=== PATIENT | male | born 1930 | race Caucasian/White ===

== ENCOUNTER → 2016-03-31 | Outpatient (CLI) | payer OTHER ==
[~2016-03-31] MED LIST: ALBUAER19 INH; ANDROGEL TD; ASPEC81 PO; ATOR-24 PO; CYAN500T13 PO; DILT120C PO; FINA5TAB PO; GLUCOSAMINE CHOND PO; LISI-725 PO; LORA5TAB21 PO; MULT-506 PO; OMEG10007 PO
[2016-03-31 13:45] LABS: BASO % 0.2 %; BASO ABS # 0.01 K/uL (0-0.2); COMPLETE YES; EOS % 1.1 %; HEMATOCRIT 43.2 % (42-52); IG% 0.2 %; LYMPH % 26.9 %; LYMPH ABS # 1.24 K/uL (1.2-3.4); MEAN CELL VOLUME 90.6 fL (80-100); MEAN CORPUSCULAR HGB CONC 34.3 g/dl (32-36); MEAN PLATELET VOLUME 9.7 fL (7.4-10.4); MONO % 11.5 %; NEUT % 60.1 %; PLATELET COUNT 249 K/uL (130-400); RED BLOOD COUNT 4.77 M/uL (4.7-6.1); WHITE BLOOD COUNT 4.61 K/uL (4.8-10.8)
[2016-03-31 14:03] LABS: ALT/SGPT 36 U/L (12-78); BLOOD UREA NITROGEN 13 mg/dl (7-18); BUN/CREATININE RATIO 14.8 (10-20); CALCIUM 8.7 mg/dl (8.5-10.1); CARBON DIOXIDE 28 mmol/L (21-32); CHLORIDE 103 mmol/L (98-107); CHOLESTEROL 187 mg/dl (0-200); GLUCOSE 88 mg/dl (70-99); POTASSIUM 4.2 mmol/L (3.5-5.1); SODIUM 140 mmol/L (136-145)
[2016-03-31 14:06] LABS: ALB/GLOB RATIO 1.2 (0.9-2); ALKALINE PHOSPHATASE 72 U/L (45-117); AST/SGOT 23 U/L (15-37); CHOLESTEROL/HDL RATIO 2.6; HDL CHOLESTEROL 72 mg/dl; LDL CHOLESTEROL CALCULATED 101 mg/dl; TRIGLYCERIDES 72 mg/dl (0-150); VERY LOW DENSITY LIPOPROT CALC 14 mg/dl
== END | disposition home or self-care (01) ==
LOC: C.LABBC 09:32
PROVIDERS: ATTEND Family Medicine
DX: E29.1 Testicular hypofunction (principal); E78.00 Pure hypercholesterolemia, unspecified; R73.9 Hyperglycemia, unspecified; I10 Essential (primary) hypertension; N40.0 Benign prostatic hyperplasia without lower urinary tract symptoms

== ENCOUNTER → 2016-10-29 | Outpatient (CLI) | payer OTHER ==
[2016-10-29 14:21] LABS: ALT/SGPT 32 U/L (12-78); AST/SGOT 19 U/L (15-37); BLOOD UREA NITROGEN 10 mg/dl (7-18); BUN/CREATININE RATIO 9.2 (10-20); CALCIUM 8.9 mg/dl (8.5-10.1); CARBON DIOXIDE 28 mmol/L (21-32); CHLORIDE 104 mmol/L (98-107); GLUCOSE 96 mg/dl (70-99); POTASSIUM 4.6 mmol/L (3.5-5.1); SODIUM 136 mmol/L (136-145)
[2016-10-29 14:27] LABS: ALKALINE PHOSPHATASE 68 U/L (45-117); CHOLESTEROL 154 mg/dl (0-200); CHOLESTEROL/HDL RATIO 2.3; HDL CHOLESTEROL 67 mg/dl; LDL CHOLESTEROL CALCULATED 77 mg/dl; PROSTATE SPECIFIC ANTIGEN 0.992 ng/ml (0.000-4.000); TRIGLYCERIDES 51 mg/dl (0-150); VERY LOW DENSITY LIPOPROT CALC 10 mg/dl
[2016-10-29 14:55] LABS: BASO % 0.2 %; BASO ABS # 0.01 K/uL (0-0.2); COMPLETE YES; EOS % 1.2 %; HEMATOCRIT 45.1 % (42-52); IG% 0.2 %; LYMPH % 28.3 %; LYMPH ABS # 1.39 K/uL (1.2-3.4); MEAN CELL VOLUME 91.9 fL (80-100); MEAN CORPUSCULAR HEMOGLOBIN 30.1 pg (25-34); MEAN CORPUSCULAR HGB CONC 32.8 g/dl (32-36); MEAN PLATELET VOLUME 9.7 fL (7.4-10.4); MONO % 9.6 %; NEUT % 60.5 %; PLATELET COUNT 249 K/uL (130-400); RED BLOOD COUNT 4.91 M/uL (4.7-6.1); WHITE BLOOD COUNT 4.92 K/uL (4.8-10.8)
== END | disposition home or self-care (01) ==
LOC: C.LABBC 09:55
PROVIDERS: ATTEND Family Medicine
DX: E29.1 Testicular hypofunction (principal); E78.00 Pure hypercholesterolemia, unspecified; I10 Essential (primary) hypertension; I44.1 Atrioventricular block, second degree; N40.1 Benign prostatic hyperplasia with lower urinary tract symptoms; Z95.0 Presence of cardiac pacemaker

== ENCOUNTER → 2017-04-29 | Outpatient (CLI) | payer OTHER ==
[2017-04-29 13:34] LABS: BASO % 0.2 %; BASO ABS # 0.01 K/uL (0-0.2); EOS % 1.2 %; EOS ABS # 0.07 K/uL (0-0.5); HEMATOCRIT 44.6 % (42-52); HEMOGLOBIN 15.2 g/dL (14.0-18.0); LYMPH % 25.7 %; MEAN CELL VOLUME 91.6 fL (80-100); MEAN CORPUSCULAR HEMOGLOBIN 31.2 pg (25-34); MEAN CORPUSCULAR HGB CONC 34.1 g/dl (32-36); MEAN PLATELET VOLUME 9.7 fL (7.4-10.4); MONO % 9.4 %; MONO ABS # 0.55 K/uL (0.11-0.59); NEUT % 63.5 %; NEUT ABS # 3.71 K/uL (1.4-6.5); PLATELET COUNT 242 K/uL (130-400); RED CELL DISTRIBUTION WIDTH CV 14.4 % (11.5-14.5); RED CELL DISTRIBUTION WIDTH SD 48.5 fL (36.4-46.3); WHITE BLOOD COUNT 5.84 K/uL (4.8-10.8)
[2017-04-29 14:29] LABS: ALBUMIN 3.7 gm/dl (3.4-5.0); ALT/SGPT 29 U/L (12-78); AST/SGOT 18 U/L (15-37); BLOOD UREA NITROGEN 11 mg/dl (7-18); CALCIUM 8.7 mg/dl (8.5-10.1); CARBON DIOXIDE 30 mmol/L (21-32); GLUCOSE 92 mg/dl (70-99); POTASSIUM 4.1 mmol/L (3.5-5.1); SODIUM 135 mmol/L (136-145)
[2017-04-29 14:37] LABS: ALKALINE PHOSPHATASE 74 U/L (45-117); TOTAL PROTEIN 7.6 gm/dl (6.4-8.2)
== END | disposition home or self-care (01) ==
LOC: C.LABBC 09:48
PROVIDERS: ATTEND Nurse Practitioner Adult Health
DX: Z00.00 Encounter for general adult medical examination without abnormal findings (principal); E29.1 Testicular hypofunction; I10 Essential (primary) hypertension; E53.8 Deficiency of other specified B group vitamins

== ENCOUNTER → 2017-10-27 | Outpatient (CLI) | payer OTHER ==
[~2017-10-27] MED LIST changes: +DILT-213 PO; -DILT120C PO
[2017-10-27 10:36] LABS: BASO % 0.4 %; BASO ABS # 0.02 K/uL (0-0.2); EOS % 2.5 %; EOS ABS # 0.13 K/uL (0-0.5); HEMATOCRIT 41.6 % (42-52); HEMOGLOBIN 14.1 g/dL (14.0-18.0); IG# 0.01 K/uL (0.00-0.02); LYMPH % 36.5 %; MEAN CELL VOLUME 89.3 fL (80-100); MEAN CORPUSCULAR HEMOGLOBIN 30.3 pg (25-34); MEAN CORPUSCULAR HGB CONC 33.9 g/dl (32-36); MEAN PLATELET VOLUME 9.4 fL (7.4-10.4); MONO % 7.5 %; MONO ABS # 0.39 K/uL (0.11-0.59); NEUT % 52.9 %; NEUT ABS # 2.75 K/uL (1.4-6.5); PLATELET COUNT 234 K/uL (130-400); RED CELL DISTRIBUTION WIDTH CV 14.2 % (11.5-14.5); RED CELL DISTRIBUTION WIDTH SD 46.4 fL (36.4-46.3)
[2017-10-27 10:51] LABS: ALBUMIN 3.6 gm/dl (3.4-5.0); ALKALINE PHOSPHATASE 67 U/L (45-117); ALT/SGPT 38 U/L (12-78); AST/SGOT 23 U/L (15-37); BLOOD UREA NITROGEN 15 mg/dl (7-18); CALCIUM 8.7 mg/dl (8.5-10.1); CARBON DIOXIDE 27 mmol/L (21-32); CHOLESTEROL 183 mg/dl (0-200); CREATININE 0.93 mg/dl (0.60-1.40); GLUCOSE 98 mg/dl (70-99); LDL CHOLESTEROL CALCULATED 103 mg/dl; POTASSIUM 4.3 mmol/L (3.5-5.1); SODIUM 137 mmol/L (136-145)
== END | disposition home or self-care (01) ==
LOC: C.LABBC 09:06
PROVIDERS: ATTEND Nurse Practitioner Family
DX: E78.00 Pure hypercholesterolemia, unspecified (principal); R73.9 Hyperglycemia, unspecified; I10 Essential (primary) hypertension; I51.9 Heart disease, unspecified; E53.8 Deficiency of other specified B group vitamins

== ENCOUNTER 2018-04-12 05:20 | Observation (INO) ==
--- NOTE | 2018-03-23 08:34 | PAT Medication Instructions ---
Medication Instructions Date of Service March 23, 2018 Home Medications aspirin [Aspirin Low Dose] 81 mg PO HS atorvastatin 40 mg PO HS cyanocobalamin (vitamin B-12) 1,000 mcg PO QAM diltiazem HCl 120 mg PO QAM finasteride 5 mg PO QPM lisinopril 10 mg PO QAM multivitamin 1 tab PO DAILY tamsulosin 0.4 mg PO HS ASK your prescriber and surgeon aspirin [Aspirin Low Dose] 81 mg PO HS DO NOT take the morning of surgery cyanocobalamin (vitamin B-12) 1,000 mcg PO QAM lisinopril 10 mg PO QAM multivitamin 1 tab PO DAILY Take morning of surgery With a small sip of water, OTHERWISE NOTHING TO EAT OR DRINK AFTER MIDNIGHT: diltiazem HCl 120 mg PO QAM Take evening before surgery atorvastatin 40 mg PO HS finasteride 5 mg PO QPM tamsulosin 0.4 mg PO HS Other Notes If you have any questions please call us at [phone] or [phone] or [phone] or [phone]
--- NOTE | 2018-03-23 09:39 | Anesthesiology Consultation ---
Date of Service March 23, 2018 Assessment & Plan (1) Encounter for pre-operative examination: Plan: - Seen by cardio= 05/10/17= "pacemaker is working correctly." Continued on current regimen with recommendation to f/u in one year. Chart Review Chart Review: Acceptable Risk for Surgery and Patient seen in Pre Admission Testing Teaching & Discussion Pre-Anesthesia Teaching/Discussion Notes: Instructed NPO after midnight before surgery,except medications with 15 cc of water. Medication instructions provided according to the PAT guidelines. History Surgery Operation Date: 03/31/18 07:15 Proposed Procedures p Transurethral Resection Prostate - Tyson Villaseñor MD Height/Weight Height: 5 ft 10 in Weight: 96.3 kg Allergies Allergy/AdvReac Type Severity Reaction Status Date / Time No Known Allergies Allergy Verified 03/17/18 09:53 Medications Home Medications Medication Instructions Recorded Confirmed Last Taken aspirin [Aspirin Low Dose] 81 mg PO HS 03/17/18 03/17/18 Unknown atorvastatin 40 mg PO HS 03/17/18 03/17/18 Unknown cyanocobalamin (vitamin B-12) 1,000 mcg PO QAM 03/17/18 03/17/18 Unknown [Vitamin B-12] diltiazem HCl 120 mg PO QAM 03/17/18 03/17/18 Unknown finasteride 5 mg PO QPM 03/17/18 03/17/18 Unknown lisinopril 10 mg PO QAM 03/17/18 03/17/18 Unknown multivitamin 1 tab PO DAILY 03/17/18 03/17/18 Unknown tamsulosin 0.4 mg PO HS 03/17/18 03/17/18 Unknown Past Medical History Medical History BPH (benign prostatic hyperplasia) Cancer SKIN CANCER History of pacemaker MEDTRONIC; 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 LAST CHECK 03/17/18 Hyperlipidemia Hypertension Obesity Spinal stenosis Past Surgical History Surgical History Fusion of spine CERVICAL C4-C6 History of cataract surgery BILATERAL History of colonoscopy History of pacemaker IMPLANTED 2015 History of tonsillectomy Status post Mohs surgery Past Anesthesia History No Hx of Anesthesia Complications and No Family Hx of Anesthesia Complications History of PONV No Motion Sickness Screening History of Motion Sickness: No Social History Smoking Status: Never smoker Do You Dip or Chew Tobacco: No Hx Alcohol Use: Yes Alcohol type: beer and wine alcohol intake frequency: a few times a month Hx Substance Use: No substance use type: does not use Exercise / Class Metabolic Activity II 4-5 Yardwork/Stairs/Walk up hill Review of Systems Patient denies chest pain, shortness of breath, dyspnea on exertion, cough, wheezing, palpitations. Physical Exam Vital Signs VITALS BP 124/83 P 90 TEMP 98.5 SP02 97%RA RESP 18 Mildly decreased cervical extension. Full TMJ range of motion. TMD 3 finger breaths Mallampati Score 2 Dentition: intact, lower left permanent bridge, lower right crowns, several caps all over Lungs: clear throughout to auscultation Cardiac: regular rate and rhythm, no murmurs noted Spine: normal Carotid arteries: negative bruit Extremities: no edema Testing Electrocardiogram Date: 03/23/18 A- sensed v-paced rhythm with prolonged AV conduction at 81 bpm. Chest X-Ray Date: 03/23/18 Nodular opacity at the left lung base may correlate with lingular scarring versus a new pulmonary nodule. No convincing evidence of acute cardiopulmonary disease. Interval placement of a left subclavian 2-lead pacemaker. (CXR report sent to PCP; response received 03/24/17= "can be worked up as outpatient. No further preop testing needed for nodule.") Other Testing Pacer check = 03/17/18= Medtronic. -VS <0.1%. -HOT BLAST WORKER 69.4%. AP-VS <0.1%. AP-HOT BLAST WORKER 30.6%. 7 years battery voltage. Mode DDDR. Laboratory Results 03/23/18 09:53 03/23/18 09:53 Blood Type A Positive 03/23/18 09:53 Antibody Screen NEGATIVE 03/23/18 09:53 03/23/18 09:53 Urine Culture - Final Urine,Clean Catch Three types of organisms present, all low counts probable skin yrn. No further identifications or sensitivities to follow.
--- NOTE | 2018-03-23 09:55 | PAT Medication Instructions ---
Medication Instructions Date of Service March 23, 2018 Home Medications Prune Juice 1 dose PO UD PRN Prune Juice 1 dose PO UD PRN bisacodyl [Bisac-Evac] 10 mg MS UD PRN bisacodyl [Fleet Bisacodyl] 10 mg MS UD PRN diclofenac sodium [Diclo Gel] 2 g TOPICAL QID donepezil 5 mg PO QAM duloxetine 60 mg PO DAILY fluticasone 2 spray INTRANASAL DAILY gabapentin 300 mg PO TID hydrocodone-acetaminophen 1 tab PO BID PRN insulin aspart U-100 [Novolog 8 unit SUBCUT QPM insulin glargine [Lantus U-100 24 unit SUBCUT QPM magnesium hydroxide [Milk of 1 dose PO UD PRN metolazone 2.5 mg PO WK metoprolol succinate 25 mg PO DAILY potassium chloride 10 meq PO UD rosuvastatin 20 mg PO QAM triamcinolone acetonide 1 applic TOPICAL BID carbidopa-levodopa [Sinemet] 1 tab PO BID doxycycline hyclate 100 mg PO BID epoetin sherri [Procrit] 300 unit/kg SUBCUT WK ergocalciferol (vitamin D2) 50,000 unit PO WK ferrous sulfate 325 mg PO TID furosemide [Lasix] 80 mg PO BID guaifenesin [Mucinex] 600 mg PO Q12H ipratropium-albuterol 3 ml INHALATION QID PRN iron,carbonyl-vitamin C [Vitron-C] 1 tab PO TID pantoprazole [Protonix] 40 mg PO DAILY polyethylene glycol 3350 [Miralax] 17 g PO DAILY rivaroxaban [Xarelto] 10 mg PO DAILY teriparatide [Forteo] 20 mcg SUBCUT DAILY Take morning of surgery With a small sip of water, OTHERWISE NOTHING TO EAT OR DRINK AFTER MIDNIGHT: Insulin Dependent Diabetic Patients * Test your blood sugar the morning of surgery * If Blood Sugar is GREATER THAN 150, take HALF of your regular dose of: * If Blood Sugar is LESS THAN 150, DO NOT TAKE ANY: Other Notes If you have any questions please call us at [phone] or [phone] or [phone] or [phone]
--- NOTE | 2018-03-23 10:31 | XRay Report ---
XR chest Pre-admission PA/Lat CLINICAL HISTORY: 87 years-old Male presenting with preoperative evaluation. TECHNIQUE: PA and lateral views of the chest were obtained. COMPARISON: 06/02/[address] from 06/19/2015. FINDINGS: Left subclavian pacer with leads to the right atrium and right ventricular apex new from prior. Ather osclerosis of aortic arch suggested. Cardiac silhouette normal in size. Nodular opacity at the left l shana base. This may correlate with lingular scarring evident on chest CT from 2015 or represent a new nodule. No other focal nodule. No pleural effusion or pneumothorax. Degenerative changes of the thora cic spine. Cervical fusion hardware noted. Upper abdomen normal. IMPRESSION: 1. Nodular opacity at the left lung base may correlate with lingular scarring versus a new pulmonary nodule. This could be evaluated with chest CT if clinically appropriate. 2. No convincing evidence of acute cardiopulmonary disease. 3. Interval placement of a left subclavian 2-lead pacemaker. Electronically signed by: Lauri Juarez M.D. 03/23/2018 10:30 AM
[2018-03-23 10:56] LABS: Basophils # (auto) 0.01 K/uL (0-0.2); Basophils % (auto) 0.2 %; Eosinophils # (auto) 0.07 K/uL (0-0.5); Eosinophils % (auto) 1.2 %; Hematocrit (blood only) 38.4 % (42-52); Immature Granulocytes # (auto) 0.01 K/uL (0.00-0.02); Immature Granulocytes % (auto) 0.2 %; Lymphocytes # (auto) 1.29 K/uL (1.2-3.4); Lymphocytes % (auto) 22.4 %; Mean Corpuscular Hgb Conc 33.9 g/dL (32-36); Mean Corpuscular Volume 92.3 fL (80-100); Mean Platelet Volume 9.1 fL (7.4-10.4); Monocytes # (auto) 0.67 K/uL (0.11-0.59); Monocytes % (auto) 11.7 %; Neutrophils % (auto) 64.3 %; Platelet Count 212 K/uL (130-400); RDW Standard Deviation 47.7 fL (36.4-46.3); Red Blood Count 4.16 M/uL (4.7-6.1); White Blood Count 5.75 K/uL (4.8-10.8)
[2018-03-23 11:03] LABS: BUN Creatinine Ratio 12.8 (10-20); Calcium 8.9 mg/dl (8.5-10.1); Creatinine Clr Calc Pharmacy 68.1 ml/min; Est GFR (African American) 89.1; Est GFR (Non-African American) 76.9; Potassium 3.8 mmol/L (3.5-5.1)
[~2018-04-12 05:20] MED LIST changes: -ALBUAER19 INH; -ANDROGEL TD; -ASPEC81 PO; -ATOR-24 PO; +CIPROFLOXACIN 400 MG/200 ML BAG IV SCH; -CYAN500T13 PO; -DILT-213 PO; -FINA5TAB PO; -GLUCOSAMINE CHOND PO; -LISI-725 PO; -LORA5TAB21 PO; +LR 15ML/HR IV SCH; -MULT-506 PO; -OMEG10007 PO
[2018-04-12] MEDS ORDERED: CIPROFLOXACIN 400 MG/200 ML BAG IV SCH (06:00)
[2018-04-12] MEDS ORDERED: LR 15ML/HR IV SCH (06:00)
[2018-04-12] MEDS ORDERED: fentaNYL citrate 100 MCG/2 ML VIAL ONE (06:47)
[2018-04-12] MEDS ORDERED: fentaNYL citrate 100 MCG/2 ML VIAL IV PRN (06:53)
[2018-04-12] MEDS ORDERED: PHENYLEPHRINE 100MCG/ML 5ML SYR IV PRN (06:53)
[2018-04-12] MEDS ORDERED: ePHEDrine sulfate 50 MG/ML AMP IV PRN (06:53)
[2018-04-12] MEDS ORDERED: ATROPINE SULFATE 0.1 MG/ML 10ML SYR IV PRN (06:53)
[2018-04-12] MEDS ORDERED: ONDANSETRON INJ 2 MG/ML 2 ML VIAL IV PRN ×2 (06:53→09:58)
[2018-04-12] MEDS ORDERED: PROPOFOL IV EMULSION 10 MG/ML 20 ML VIAL IV ONE (06:57)
[2018-04-12] MEDS ORDERED: LIDOCAINE HCL 2% 2 ML VIAL/AMP(20MG/ML) INFIL ONE (06:57)
--- NOTE | 2018-04-12 07:06 | History & Physical Bridge Note ---
Date of Service April 12, 2018 History & Physical Bridge Note I have examined the patient, reviewed the History & Physical and in the interval since the performance of the History & Physical I have noted the following changes of clinical significance: no changes noted
--- NOTE | 2018-04-12 07:17 | Anesthesiology Consultation ---
Date of Service April 12, 2018 Assessment & Plan (1) Encounter for pre-operative examination: Chart Review Chart Review: Acceptable Risk for Surgery and Patient NOT seen in Pre Admission Testing Consults Requested none ASA ASA3 Proposed Anesthesia Anesthesia Type: General Risk / Benefits Reviewed With: PT / POA / Parent / Guardian, Accepts Plan and Informed Consent Obtained NPO Date Last Intake of Fluids: 04/11/18 Time Last Intake of Fluids: 19:00 Last Intake of Fluids Comment: sip of water 0430 w/med Date Last Intake of Solids: 04/11/18 Time Last Intake of Solids: 18:30 History Surgery Operation Date: 04/12/18 07:15 Proposed Procedures p Transurethral Resection Prostate - Tyson Villaseñor MD Height/Weight Height: 5 ft 10 in Weight: 87.634 kg Allergies Allergy/AdvReac Type Severity Reaction Status Date / Time No Known Allergies Allergy Verified 04/12/18 05:37 Medications Home Medications Medication Instructions Recorded Confirmed Last Taken aspirin [Aspirin Low Dose] 81 mg PO HS 03/17/18 04/12/18 03/27/18 22:00 atorvastatin 40 mg PO HS 03/17/18 04/12/18 04/11/18 22:00 cyanocobalamin (vitamin B-12) 1,000 mcg PO QAM 03/17/18 04/12/18 04/11/18 08:00 [Vitamin B-12] diltiazem HCl 120 mg PO QAM 03/17/18 04/12/18 04/12/18 04:30 finasteride 5 mg PO QPM 03/17/18 04/12/18 04/11/18 22:00 lisinopril 10 mg PO QAM 03/17/18 04/12/18 04/11/18 08:00 multivitamin 1 tab PO DAILY 03/17/18 04/12/18 04/11/18 08:00 oxybutynin chloride 1 tab PO HS 04/11/18 04/12/18 04/11/18 22:00 Active Medications Generic Name Dose Route Start Last Admin Trade Name Freq PRN Reason Stop Dose Admin Lactated Ringer's 1,000 mls @ 15 mls/hr 04/12/18 06:00 04/12/18 06:05 Lr IV 04/13/18 05:59 15 mls/hr .Q24H [facility] Administration Past Medical History Medical History BPH (benign prostatic hyperplasia) Cancer SKIN CANCER History of pacemaker MEDTRON[employer]; 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 LAST CHECK 03/17/18 Hyperlipidemia Hypertension Obesity Spinal stenosis Past Surgical History Surgical History Fusion of spine CERVICAL C4-C6 History of cataract surgery BILATERAL History of colonoscopy History of pacemaker IMPLANTED 2015 History of tonsillectomy Status post Mohs surgery Past Anesthesia History No Hx of Anesthesia Complications History of PONV No Motion Sickness Screening History of Motion Sickness: No Social History Smoking Status: Never smoker Do You Dip or Chew Tobacco: No Hx Alcohol Use: Yes Alcohol type: beer and wine alcohol intake frequency: a few times a month Hx Substance Use: No substance use type: does not use Exercise / Class Metabolic Activity II 4-5 Yardwork/Stairs/Walk up hill Negative for chest pain or shortness of breath. Patient denies active symptoms of GERD. Physical Exam Vital Signs Last Vital Signs Temp 36.6 C 04/12/18 05:39 Pulse 94 H 04/12/18 05:39 Resp 18 04/12/18 05:39 BP 172/97 H 04/12/18 05:39 Pulse Ox 99 04/12/18 05:39 Constitutional not obese ENMT Mouth: no TMJ abnormality and oral opening not small Thyromental Distance: > or= 3.5 Finger Breadths Mallampati Class: I Neck normal visual inspection and + limited neck extension Respiratory normal respiratory effort Auscultation: lungs clear to auscultation bilaterally Cardiovascular Rate/Rhythm: regular rate and regular rhythm Heart Sounds: no murmur Chest (Breasts) Chest: + pacemaker Psychiatric A+Ox3, euthymic affect Orientation: alert and oriented x 3 Testing Electrocardiogram Date: 03/23/18 A- sensed v-paced rhythm with prolonged AV conduction at 81 bpm. Chest X-Ray Date: 03/23/18 Nodular opacity at the left lung base may correlate with lingular scarring versus a new pulmonary nodule. No convincing evidence of acute cardiopulmonary disease. Interval placement of a left subclavian 2-lead pacemaker. (CXR report sent to PCP; response received 03/24/17= "can be worked up as outpatient. No further preop testing needed for nodule.") Other Testing Pacer check = 03/17/18= Medtr[employer]. -VS <0.1%. -CREDIT CARD ASSOCIATE 69.4%. AP-VS <0.1%. AP-CREDIT CARD ASSOCIATE 30.6%. 7 years battery voltage. Mode DDDR. Laboratory Results 03/23/18 09:53 03/23/18 09:53 Blood Type A Positive 03/23/18 09:53 Antibody Screen NEGATIVE 03/23/18 09:53 03/23/18 09:53 Urine Culture - Final Urine,Clean Catch Three types of organisms present, all low counts probable skin yrn. No further identifications or sensitivities to follow.
[2018-04-12] MEDS ORDERED: ONDANSETRON INJ 2 MG/ML 2 ML VIAL ONE (07:36)
[2018-04-12] MEDS ORDERED: DEXAMETHASONE SOD INJ 4 MG/ML VIAL ONE (07:36)
[2018-04-12] MEDS ORDERED: PHENYLEPHRINE 100MCG/ML 5ML SYR ONE (07:47)
[2018-04-12] MEDS ORDERED: PHENYLEPHRINE HCL 10 MG/ML VIAL ONE (08:42)
--- NOTE | 2018-04-12 09:01 | Post Operative Brief Note ---
Immediate Post Op Note v1 Date of Surgery April 12, 2018 Pre & Post Diagnosis Operation Date: 04/12/18 07:15 Pre-Op Diagnosis: Benign Prostatic Hyperplasia Post-Op Diagnosis: Benign Prostatic Hyperplasia Procedure Operation Date: 04/12/18 07:15 Actual Procedures p Transurethral Resection Prostate(Not Applicable) - Tyson Villaseñor MD Surgeon Tyson Villaseñor MD Pre Sales Technical Consultant none Estimated Blood Loss 50 Findings Consistent with Post-Op Diagnosis Drains Koroma Catheter
--- NOTE | 2018-04-12 09:55 | Anesthesiology Progress Note ---
Date of Service April 12, 2018 Anesthesia Post Procedure Vital Signs Vital Signs: Temp Pulse Pulse Resp BP Pulse Ox 04/12/18 09:50 36.2 C L 63 16 140/88 97 04/12/18 09:40 60 13 132/85 96 04/12/18 09:30 63 15 125/75 99 04/12/18 09:20 66 18 129/69 99 04/12/18 09:10 36.0 C L 68 13 124/67 98 04/12/18 05:39 36.6 C 94 H 18 172/97 H 99 Notes Mental Status: alert / awake / arousable Patient Amnestic to Procedure: Yes Nausea / Vomiting: adequately controlled Pain: adequately controlled Airway Patency, RR, SpO2: stable & adequate BP & HR: stable & adequate Hydration State: stable & adequate Anesthetic Complications: no major complications apparent
[2018-04-12] MEDS ORDERED: HYDROCODONE/ACETAMOPHEN 5/325MG TAB PO PRN (09:58)
[2018-04-12] MEDS ORDERED: ACETAMINOPHEN 325 MG TAB PO PRN (09:58)
--- NOTE | 2018-04-12 10:08 | Operative Report ---
DATE OF OPERATION: 04/12/2018 PREOPERATIVE DIAGNOSIS: Benign prostatic hypertrophy with nocturia and urgency. POSTOPERATIVE DIAGNOSIS: Benign prostatic hypertrophy with nocturia and urgency. SURGEON: Tyson Villaseñor MD. ANESTHESIA: General. PROCEDURE: Transurethral resection of the prostate. ESTIMATED BLOOD LOSS: 50 mL. INDICATIONS: The patient is an 87-year-old male who presented initially with nocturia complaints with some irritative voiding symptoms who was started initially on finasteride and tamsulosin. We agreed that at his age, surgery would not be indicated given that his nocturia is mainly 3 times at night. However, this continued to vex him throughout his visits over a several year period. He did try some anticholinergics. Finally, the patient felt that his urgency was getting worse during the day. I did a cystoscopy. He did have moderate obstruction with trabeculation and a few cellules and discussed doing a TURP as a last resort. The patient understood that there were risks of the procedure, and at his age, given that he was emptying relatively well, it was not an absolute indication. However, his quality of life was important, and his overall health for his age is excellent, so we decided to proceed. Patient was cancelled once because he had a cold. He wanted to proceed as soon as possible, and he understood that I would be leaving town on the day of the procedure but wished to proceed in any case. DESCRIPTION OF THE PROCEDURE: The patient was taken to the cystoscopy suite with Venodyne stockings on and had been given preoperative antibiotics. He was given general anesthesia. He was placed in dorsal lithotomy position and prepped and draped in the usual sterile fashion. Initially, a 22-Danish cystoscope was passed per urethra. The bladder was again examined with the 22 cystoscope. There was no significant intravesical prostate but an intravesical lip and again a moderately enlarged obstructing prostate. Initially, using a loop, approximately 5-10 mL of tissue was resected, and then using a button, the tissue was smoothed over, and all the bleeding vessels were cauterized. At the end of the procedure, there was a clear view from the verumontanum into the bladder. There was a little bit of residual apical tissue left to protect the patient from incontinence. Otherwise, there was a good channel from the verumontanum into the bladder. Patient had a Koroma catheter placed. Urine was clear. Again, there was no significant bleeding. The catheter was taped to his leg, and patient was transferred to the recovery room in stable condition. I attest to the content of the Intraoperative Record and any orders documented therein. Any exception s are noted below.
[2018-04-12] MEDS: CYANOCOBALAMIN 500 MCG TABLET (VITAMIN B-12) PO SCH (10:59)
[2018-04-12] MEDS: MULTIVITAMIN TAB PO SCH (11:00)
[2018-04-12] MEDS: DOCUSATE SODIUM 100 MG CAP PO SCH ×2 (11:00→20:12)
[2018-04-12] MEDS: FAMOTIDINE 20 MG in SYRINGE 3 ML IV SCH ×2 (11:00→22:26)
[2018-04-12] MEDS: LISINOPRIL 10 MG TAB PO SCH (11:00)
[2018-04-12] MEDS: SODIUM CHLORIDE 0.45 % 1,000 ML IV SCH (11:07)
--- NOTE | 2018-04-12 13:22 | Consultation ---
Date of Consultation April 12, 2018 Assessment & Plan (1) BPH (benign prostatic hyperplasia): with severe LUTS. s/p TURP today by Dr. Villaseñor. defer cuello catheter care and post-op urological management to Dr. Villaseñor's team including pain control, DVT proph, etc. Present on Admission?: Yes (2) HTN (hypertension): would check BMP in am to ensure creatinine is stable prior to resuming his ELIZABET. otherwise resume normal BP meds. (3) Pacemaker: implanted 2nd to 2nd degree AV block; follows with Dr. Morris. no cardiac symptoms post-op. (4) Abnormal CXR: left lower lobe nodule on recent cxr. defer to PCP or the [facility] pulmonary nodule program. I informed patient of this finding today during my visit. this is important especially in light of recent melanoma diagnosis. (5) Anemia: mild. recommend outpatient work-up for such. (6) DVT prophylaxis: defer to Dr. Villaseñor. Thank you for the consult. Will follow with you. History of Present Illness Reason for Consultation: post-op medical management Requesting Physician: Tyson Villaseñor MD Attending Physician: Tyson Villaseñor MD History of Present Illness Pleasant 87yo male with history of pacemaker status due to heart block, HTN, melanoma (recent removal of such), and BPH who underwent elective TURP by Dr. Villaseñor today for severe BPH. I saw the patient on the surgical floor post-op. He just finished eating lunch. Denied chest pain, dyspnea, abd pain, nausea, emesis. He reported feeling good except for mild pain in the expected location of the prostate. He mentioned he had had a URI several weeks prior but this was fully resolved. Allergies Allergy/AdvReac Type Severity Reaction Status Date / Time No Known Allergies Allergy Verified 04/12/18 05:37 Home Medications Home Medications Medication Instructions Recorded Confirmed Type aspirin [Aspirin Low Dose] 81 mg PO HS 03/17/18 04/12/18 History atorvastatin 40 mg PO HS 03/17/18 04/12/18 History cyanocobalamin (vitamin B-12) 1,000 mcg PO QAM 03/17/18 04/12/18 History [Vitamin B-12] diltiazem HCl 120 mg PO QAM 03/17/18 04/12/18 History finasteride 5 mg PO QPM 03/17/18 04/12/18 History lisinopril 10 mg PO QAM 03/17/18 04/12/18 History multivitamin 1 tab PO DAILY 03/17/18 04/12/18 History oxybutynin chloride 1 tab PO HS 04/11/18 04/12/18 History Patient History Medical History BPH (benign prostatic hyperplasia) Cancer SKIN CANCER History of pacemaker MEDTRON[employer]; 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 LAST CHECK 03/17/18 Hyperlipidemia Hypertension Obesity Spinal stenosis Surgical History Fusion of spine CERVICAL C4-C6 History of cataract surgery BILATERAL History of colonoscopy History of pacemaker IMPLANTED 2015 History of tonsillectomy Status post Mohs surgery Family History Father Heart attack Mother Heart attack Social History marital status: , 3 kids Current Living Situation: Spouse current occupational status: retired Other Information That Helps Us Care for You: No other: worked in [employer] in various industries including the [employer] Feels Safe at Home: Yes Safety Concerns: Feels Safe At This Time Smoking Status: Never smoker Do You Dip or Chew Tobacco: No Hx Alcohol Use: Yes Alcohol type: beer and wine Alcohol Intake Frequency: a few times a month Hx Substance Use: No Beliefs That Will Affect Care: None Preferred Language: Macedonian Communication Ability: Effective Cable Strander Required: No Review of Systems Constitutional: no fever, no chills and no weight loss Eyes: no worsening vision Ear, Nose, Mouth, Throat: no nasal congestion and no sore throat Respiratory: no cough and no dyspnea Cardiovascular: no chest pain Gastrointestinal: no abdominal pain, no nausea and no vomiting Genitourinary (Male): + difficulty urinating, + urinary frequency and + nocturia (severe); no dysuria Musculoskeletal: no joint pain Integumentary: no rash just had surgery for melanoma Neurologic: no paralysis and no loss of sensation Psychiatric: no depression Physical Exam 2 Vital Signs (Past 24 Hours): Last Vital Signs Temp 36.3 C L 04/12/18 11:01 Pulse 66 04/12/18 12:23 Resp 16 04/12/18 12:23 BP 160/82 H 04/12/18 12:23 Pulse Ox 98 04/12/18 12:23 Constitutional: well developed and well nourished; no acute distress and not ill appearing looks younger than stated age Eyes: PERRL (lens implants b/l) ENMT: external ear and nose normal, oropharynx normal Neck: trachea midline, no thyromegaly Respiratory: normal respiratory effort, lungs clear to auscultation Cardiovascular: Rate/Rhythm: regular rate and regular rhythm Heart Sounds: normal S1, normal S2 and + murmur (03/27 RUSB/apex) Vessels: posterior tibial pulses present and dorsalis pedis pulses present; no JVD Extremities: no edema Gastrointestinal (Abdomen): normal bowel sounds, soft, nontender, no hepatosplenomegaly Skin: no rashes, warm and dry Neurologic: deep tendon reflexes 2+ bilaterally; no focal motor deficits Psychiatric: A+Ox3, euthymic affect Lymphatic: no cervical lymphadenopathy Results & Data Diagnostic Findings recent cxr, 03/24/18 - IMPRESSION: 1. Nodular opacity at the left lung base may correlate with lingular scarring versus a new pulmonary nodule. This could be evaluated with chest CT if clinically appropriate. 2. No convincing evidence of acute cardiopulmonary disease. 3. Interval placement of a left subclavian 2-lead pacemaker. _ (1) BPH (benign prostatic hyperplasia) Lower urinary tract symptom presence: symptoms present Lower urinary tract symptom detail: nocturia Qualified Code(s): N40.1 - Benign prostatic hyperplasia with lower urinary tract symptoms; R35.1 - Nocturia (2) HTN (hypertension) Hypertension type: essential hypertension Qualified Code(s): I10 - Essential (primary) hypertension (3) Anemia Anemia type: unspecified type Qualified Code(s): D64.9 - Anemia, unspecified
[2018-04-12] MEDS: CIPROFLOXACIN 400 MG/200 ML BAG IV SCH (20:12)
[2018-04-12] MEDS ORDERED: ATORVASTATIN 40 MG TAB PO SCH (21:00)
[2018-04-12] MEDS ORDERED: FINASTERIDE 5 MG TAB PO SCH (21:00)
[2018-04-12] MEDS ORDERED: OXYBUTYNIN CHLORIDE 5 MG TAB PO SCH (21:00)
[2018-04-13] MEDS: SODIUM CHLORIDE 0.45 % 1,000 ML IV SCH ×2 (01:38→14:03)
[2018-04-13 07:28] LABS: Hematocrit (blood only) 40.6 % (42-52); Immature Granulocytes # (auto) 0.02 K/uL (0.00-0.02); Immature Granulocytes % (auto) 0.2 %; Lymphocytes # (auto) 1.65 K/uL (1.2-3.4); Lymphocytes % (auto) 14.9 %; Mean Corpuscular Hgb Conc 34.5 g/dL (32-36); Mean Corpuscular Volume 90.4 fL (80-100); Mean Platelet Volume 8.8 fL (7.4-10.4); Monocytes # (auto) 1.01 K/uL (0.11-0.59); Monocytes % (auto) 9.1 %; Neutrophils # (auto) 8.38 K/uL (1.4-6.5); Neutrophils % (auto) 75.8 %; Platelet Count 236 K/uL (130-400); RDW Coefficient of Variation 13.4 % (11.5-14.5); RDW Standard Deviation 44.3 fL (36.4-46.3); Red Blood Count 4.49 M/uL (4.7-6.1); White Blood Count 11.06 K/uL (4.8-10.8)
[2018-04-13] MEDS: FAMOTIDINE 20 MG in SYRINGE 3 ML IV SCH (08:55)
[2018-04-13] MEDS: CYANOCOBALAMIN 500 MCG TABLET (VITAMIN B-12) PO SCH (08:55)
[2018-04-13] MEDS: LISINOPRIL 10 MG TAB PO SCH (08:56)
[2018-04-13] MEDS: DOCUSATE SODIUM 100 MG CAP PO SCH (08:56)
[2018-04-13] MEDS: MULTIVITAMIN TAB PO SCH (08:56)
[2018-04-13] MEDS: CIPROFLOXACIN 400 MG/200 ML BAG IV SCH (08:57)
[2018-04-13] MEDS ORDERED: dilTIAZem ER 120 MG CAPCR PO SCH (09:00)
--- NOTE | 2018-04-13 10:48 | Urology Progress Note ---
Date of Service April 13, 2018 Assessment & Plan (1) BPH (benign prostatic hyperplasia): 87yo M POD #1 s/p TURP VSS, afebrile. H&H stable today. Doing very well today, no complaints or issues overnight. Some scant bloody drainage from catheter today, much improved from last night per patient report. Did not require irrigation overnight. Appreciate hospitalist input for BP management, okay to restart all home meds per Dr. Villaseñor's perspective. Plan to discharge with catheter intact. Plan for TOV, already scheduled as outpatient on Wednesday. Please see discharge instructions for patient instruction details. Subjective 87yo M POD #1 s/p TURP VSS, afebrile Some elevated BP through the evening, appreciate hospitalist input. Patient is doing very well today, reports minimal to no discomfort. He has not required pain medication overnight. He had a very uneventful evening, slept through the night. Tolerating regular diet, denies nausea/vomiting. Tolerating catheter well. No family members at bedside at time of evaluation. Review of Systems All systems reviewed & are unremarkable except as noted in HPI & below Physical Exam 2 Vital Signs (Past 24 Hours): Last Vital Signs Temp 36.4 C L 04/13/18 07:56 Pulse 83 04/13/18 07:56 Resp 18 04/13/18 07:56 BP 126/78 04/13/18 07:56 Pulse Ox 98 04/13/18 07:56 Physical Exam: A&Ox3, sitting up in chair. RRR abd soft, nontender : catheter intact, draining clear/pink with scant amount of bloody sediment. _ (1) BPH (benign prostatic hyperplasia) Lower urinary tract symptom detail: nocturia Lower urinary tract symptom presence: symptoms present Qualified Code(s): N40.1 - Benign prostatic hyperplasia with lower urinary tract symptoms; R35.1 - Nocturia
--- NOTE | 2018-04-13 10:57 | Hospitalist Progress Note ---
Date of Service April 13, 2018 Assessment & Plan (1) BPH (benign prostatic hyperplasia): - Presence of severe LUTS and S/P TURP on 04/[address] Villaseñor - Plans to D/C with cuello in place and F/U on Wednesday - urological management per primary team Disposition: Medically is suitable for discharge when deemed appropriate by primary team. Continue home medications as previously prescribed. Hospitalist service will sign off at this time unless an acute change occurs, please contact us if needed. Present on Admission?: Yes (2) HTN (hypertension): - BP better controlled this morning and likely a component of holding his meds prior to his procedure - Can resume home medications - Diltiazem 120 mg daily and Lisinopril 10 mg daily Present on Admission?: Yes (3) Pacemaker: - H/O 2nd Degree AV Block - follows with Dr. Roes - No cardiac symptoms post-op Present on Admission?: Yes (4) Abnormal CXR: - LLL nodule - recommend F/U imaging per nodule program guidelines - Patient was informed on initial consultation - appreciate assistance with lung nodule program/PCP F/U Present on Admission?: Yes (5) Anemia: - Mild and asymptomatic - labs today actually place him back in normal range - can have monitor as outpatient if necessary Present on Admission?: Yes Subjective Patient reports feeling very well today. Denies having any pain but states just a bit of discomfort with the catheter that is the equivalent to having an itch that can't be scratched He is tolerating a diet without issue and verbalizes no other issues. Reports he drinks pretty frequently but so far hasn't had too much today. He was excited at last night was the first night he had a full nights sleep as he normally wakes every 3 hours or more during the night due to BPH issues Constitutional: no fever and no chills Ear, Nose, Mouth, Throat: no nasal congestion, no dry mouth and no sore throat Respiratory: no cough, no dyspnea and no dyspnea on exertion Cardiovascular: no chest pain, no palpitations and no edema Gastrointestinal: no abdominal pain, no nausea, no vomiting, no constipation and no diarrhea/loose stools Genitourinary (Male): no dysuria Integumentary: no rash Physical Exam 2 Vital Signs (Past 24 Hours): Last Vital Signs Temp 36.4 C L 04/13/18 07:56 Pulse 83 04/13/18 07:56 Resp 18 04/13/18 07:56 BP 126/78 04/13/18 07:56 Pulse Ox 98 04/13/18 07:56 Constitutional: WD/WN, vitals as above Eyes: + anicteric sclerae ENMT: Ears: no hearing impairment Throat: no posterior oropharynx abnormality Neck: trachea midline Respiratory: normal respiratory effort, lungs clear to auscultation Cardiovascular: Rate/Rhythm: regular rate and regular rhythm Gastrointestinal (Abdomen): Inspection/Auscultation: normal bowel sounds Percussion/Palpation: abdomen soft; abdomen nontender Musculoskeletal: Head/Neck/Chest: normocephalic, head atraumatic and neck supple Skin: no rashes, warm and dry Neurologic: moves all extremities Psychiatric: A+Ox3, euthymic affect Genitourinary: Cuello catheter present with clear very pale urine in tubing and light patiño red in catheter bag with minimal small clots _ (1) BPH (benign prostatic hyperplasia) Lower urinary tract symptom presence: symptoms present Lower urinary tract symptom detail: nocturia Qualified Code(s): N40.1 - Benign prostatic hyperplasia with lower urinary tract symptoms; R35.1 - Nocturia (2) HTN (hypertension) Hypertension type: essential hypertension Qualified Code(s): I10 - Essential (primary) hypertension (3) Anemia Anemia type: unspecified type Iron deficiency anemia type: Vitamin B12 deficiency anemia type: Folate deficiency anemia type: Bone marrow failure anemia type: Hemolytic anemia type: Other causes of anemia: Chronic kidney disease stage: Qualified Code(s): D64.9 - Anemia, unspecified
--- NOTE | 2018-04-13 11:13 | Discharge Summary ---
Date of Service April 13, 2018 Principal Diagnosis BPH Discharge Data Allergies Allergy/AdvReac Type Severity Reaction Status Date / Time No Known Allergies Allergy Verified 04/12/18 05:37 Consultations 04/12/18 09:58 Consult Hospitalist Routine Procedures Performed Operation Date: 04/12/18 07:15 Actual Procedures p Bipolar Transurethral Resection Prostate(Not Applicable) - Tyson Villaseñor MD Hospital Course (1) BPH (benign prostatic hyperplasia): Admitted, uneventful evening. Will discharge home with catheter in place. Voiding trial has been arranged for outpatient. D/c'ed home in stable condition. Total Time Total Time Spent Total Time Spent (In Minutes): 10 min Discharge Plan Discharge Items Patient Disposition: Home - Self-Care Reason For Visit: Benign Prostatic Hyperplasia Discharge Diagnosis: Benign Prostatic Hyperplasia Discharge Goals: Decrease discomfort, Improve function, Specific goals and Therapeutic intervention Activity: As commented below Activity Comment: Take it easy while catheter in place, then okay to increase activity slowly Lifting: No more than 10 pounds Bathing Comment: Okay to shower tomorrow. Please avoid soaking while catheter in place. Sexual Activity: Wait until after follow-up appointment Exercise/Sports: Rest today and Wait until after follow-up appointment Driving/Machine Use: Resume 1 day after discharge Non-emergency contact: Urologist Call non-emergency contact if: you have any medication questions, your symptoms worsen, your pain is not controlled, your pain is concerning for you and your temperature is above 101 Follow-up/Referrals: Tyson Villaseñor MD [Physician] - 05/03/18 9:50 am (Please, follow up at [facility] Urology Office on WednesdayMay 03 at 9:50 am. *This office is located at [address] [place] [address] in [place]. If you need to change this appointment, call the office at [phone].) Seun Artis III, CRNP [Primary Care Provider] - 04/18/18 9:20 am (Please, follow up at Seun WATSON's office with Brittani WATSON on WednesdayApril 18 at 9:20 am. *If you need to change this appointment, call the office at [phone].) Diet: Regular Addtl Provider Instructions: Please keep all follow-up apointments as scheduled. [facility] Urology nusing visit on 04/15 at 9AM [facility] Urology Dr. Villaseñor follow-up on 05/03 at 09:50AM. Please take antibiotic, Ciprofloxacin twice a day while having your catheter in place. Please take colace (stool softener twice a day for 2 weeks, then PRN for constipation). Please note, after the catheter comes out on Wednesday you willl have alot of urgency and frequency of urination. This is because the prostate is now a raw surface and this is to be expected. Please be patient and give this time to recover. Please hold your baby aspirin until you do not see blood in your urine anymore. This may last for a 3-4 weeks. It is very common to have some blood at the start of your urinary stream. Please contact our office if you see very bloody urine that persists throughout your entire void with clots. Report to the ED for fevers >101F, inability to void after the catheter comes out, intractable pain or vomiting. Do not hesitate to contact our office at [phone] with any concerns or questions. Prescriptions: New ciprofloxacin HCl [Cipro] 500 mg tablet 500 mg PO BID Qty: 6 RF: 0 docusate sodium [Colace] 100 mg capsule 100 mg PO BID PRN (Reason: constipation) Qty: 60 RF: 0 Continue multivitamin Tablet 1 tab PO DAILY RF: 0 atorvastatin 40 mg Tablet 40 mg PO HS RF: 0 cyanocobalamin (vitamin B-12) [Vitamin B-12] 1,000 mcg Tablet 1,000 mcg PO QAM RF: 0 lisinopril 10 mg Tablet 10 mg PO QAM RF: 0 finasteride 5 mg Tablet 5 mg PO QPM RF: 0 diltiazem HCl 120 mg Tablet Extended Release 24 Hr 120 mg PO QAM RF: 0 oxybutynin chloride 5 mg Tablet 1 tab PO HS RF: 0 Discontinued aspirin [Aspirin Low Dose] 81 mg Tablet,Delayed Release (Dr/Ec) 81 mg PO HS RF: 0 Stand-Alone Forms: [facility] Discharge Orders: Discharge Order (Routine); Ordered 04/13/18 Ordered By: Masha Neal Admission Data Admit Date/Time: 04/12/18 09:14 Attending Provider: Tyson Villaseñor Admit Provider: Tyson Villaseñor Primary Care Provider: Seun Artis III Other Providers: Jarrett Persaud ; Shaneka Blackmon ; Edwin Jolly ; Roseann Langford ; Torres Jacobsen ; Rojas Gu ; Sandeep Macdonald ; Serafin Ayala ; Ranjeet Tellez ; Josiah De Oliveira ; Kirstie Fatima ; Elle Farooq ; Wendy Lepe ; Tobias Washington ; Alejandra Pascual ; Jeremias Castañeda ; Jimbo Kamara ; Yael Tapia ; Francia Cast ; Ny Agustin ; Sheng Estrada ; Kd Vo ; Samantha Dias ; Lucia Russo ; Isaac Carranza Service: Surgical Services Other Interventions: Discharge Summary Assessment (RN) Last Done: 04/13/18 11:20 DC Date/Time DO NOT enter until pt leaves facility: 04/13/18 14:06
[2018-04-13] MEDS ORDERED: FAMOTIDINE 20 MG TAB PO SCH (21:00)
--- NOTE | 2018-04-23 14:05 | Discharge Summary ---
REASON FOR THE ADMISSION: Obstructive and irritative voiding symptoms with benign prostatic hypertrophy. PROCEDURE PERFORMED: TURP. HISTORY OF PRESENTATION AND HOSPITAL COURSE: The patient is an 87-year-old male who had chronic nocturia and urinary frequency and urgency that have been treated with outpatient medications for several years, whose symptoms bothered him so severely when he wished to proceed on with surgical intervention. We discussed the risks given his age; however, he would wish to proceed. He was taken to the operating room where on the day of the admission on the where general anesthesia was administered and he had a TURP that went without complication. Postoperatively, his urine was clear. He was doing well the night after the procedure. On the next day, he was discharged home with a Koroma catheter in place with no significant complication.
== END 2018-04-13 14:06 | disposition home or self-care (01) ==
LOC: ASU 05:20 → 3W 05:20